=== PATIENT | female | born 1975 | race Caucasian/White ===

== ENCOUNTER 2019-05-21 17:41 | Emergency (ER) | payer BC ==
--- NOTE | 2019-05-21 18:12 | ER Document Report ---
HPI - HPI Patient complains to provider of: right sided neck pain x 1 month Time Seen by Provider: 05/21/19 18:11 Onset: Other - weekd Onset/Duration: Gradual, Persistent, Waxing and waning Severity: Moderate Pain Level: 3 Context: 43-year-old female with the listed past medical history here for several weeks of continued right-sided neck pain that radiates down her right arm. She has already had x-rays that only showed arthritis per patient done at her chiropractor's office yesterday. however i do not have these records for review. She has been on soma without improvement of her symptoms 2 wks ago and has also tried toradol in the clinic along with decadron and states they didn't help at all. Tylenol and ibuprofen are not controlling her symptoms. No spinal surgeries. She states her chiropractor told her she needed to have an MRI as he felt like she may have a slipped disc. She states she tried to get into her primary care but has not been able to yet and they told her to come here for pain control. She denies any actual fall or trauma. She states she just awoke with the pain. No history of this before. Denies IV drug use. No fever. She states she has xxph-eft-nlhikik, and tingling in her right arm which she has had for weeks now. She states this is unchanged. No weakness. No facial droop. No slurred speech. No headache, dizziness, blurred vision, tinnitus, syncope, hx of arythrmias, cp, sob, ripping or tearing sensation, or any other symptoms. She states she has an appointment with her primary care doctor finally in 2 days however she could not take the pain any longer so she came in for pain control. She is allergic to codeine and states it causes anaphylaxis however she states she can take all other narcotics without any issue. She states she has had Vicodin before in the past for dental pain. She recently returned from [place]. she states she had to wait to see her pcp to get the mri done. denies any other complaints at this time. Associated Symptoms: denies: Chest pain, Fever, Leg swelling, Shortness of breath, Weakness Exacerbated by: Movement Relieved by: Remaining still Similar symptoms previously: Yes Recently seen / treated by doctor: Yes - ROS Systems Reviewed and Negative: Yes All other systems reviewed and negative - to include 10 systems, unless mentioned in the hpi - REPRODUCTIVE Reproductive: DENIES: : Past Medical History - General Information source: Patient - Social History Smoking Status: Current Some Day Smoker Frequency of alcohol use: None Drug Abuse: None Lives with: Alone Family History: Reviewed & Not Pertinent Patient has suicidal ideation: No Patient has homicidal ideation: No - Past Medical History Cardiac Medical History: Denies: Hx Atrial Fibrillation, Hx Coronary Artery Disease, Hx DVT, Hx Heart Attack, Hx Peripheral Vascular Disease, Hx Pulmonary Embolism Pulmonary Medical History: Denies: Hx Asthma Neurological Medical History: Denies: Hx Cerebrovascular Accident, Hx Migraine, Hx Seizures Endocrine Medical History: Denies: Hx Diabetes Mellitus Type 1, Hx Diabetes Mellitus Type 2, Hx Hypothyroidism Musculoskeletal Medical History: Reports Hx Arthritis, Reports Hx Muscle Spasm Psychiatric Medical History: Reports: Hx Anxiety, Hx Depression Infectious Medical History: Reports: None Past Surgical History: Denies: Hx Neurologic Surgery, Hx Orthopedic Surgery - Immunizations Immunizations up to date: Yes Vertical Provider Document - CONSTITUTIONAL Agree With Documented VS: Yes Exam Limitations: No Limitations General Appearance: WD/WN Notes: >>>> PHYSICAL_EXAM: GENERAL_APPEARANCE: well_nourished, alert, cooperative, no_acute_distress, mild_obvious_discomfort. pleasant, thin middle aged white female who appears slightly older than stated age, appears uncomfortable but not toxic, smiling, speaking in full sentences, in no sign of resp distress, no one is with her. VITALS: reviewed, see vital signs table. HEAD: no_swelling\tenderness on the head. normocephalic. atraumatic. no daly signs. no raccoons eyes. EYES: PERRL, EOMI, conjunctiva_clear. NOSE: no_nasal_discharge. MOUTH: (-)decreased moisture. THROAT: no_tonsilar_inflammation/exudate/hypertrophy/thrush, no_airway_obstruction. no_lymphadenopathy NECK: supple, no midline neck_tenderness, no step offs or deformities. there is ttp over the right trapezius, rhomboids, and paracervical musculature that reproduces pts pain exactly. spasm noted. no overlying skin changes. (- )thyromegaly. full rom other than slight decreased rom on lateral bending secondary only to pain. full strength. no jvd. no carotid bruit. no meningeal signs. no sign of central cord syndrome. no torticollis. BACK: no_back_tenderness. CHEST_WALL: no_chest_tenderness. no overlying skin changes LUNGS: no_wheezing, ctab (-)accessory muscle use, good air exchange bilateral. HEART: normal_rate, normal_rhythm, ABDOMEN: normal_BS, soft, no_abd_tenderness, (-)guarding, (-)rebound, no distension or peritoneal signs. no cva ttp EXTREMITIES: strength 5/5 in all_extremities, good pulses in all_extremities, no_swelling\tenderness in the extremities other than over right bicipital groove. questionably pos speed and yergasons test. neg drop can test, no_edema. full rom. normal gait. good pulses. brisk cap refill. good hand eating disorder psychologist. NEURO: motor and sensation intact, cranial nerves 2-12 intact, cerebellar fxn intact SKIN: warm, dry, good_color, no_rash. MENTAL_STATUS: speech_clear, oriented_X_3, normal_affect, respon ds_appropriately to questions. Course - Re-evaluation Re-evalutation: 05/21/19 19:10 Pt here for awaiting follow-up with her PCP in a couple days to have an MRI set up as she likely has right cervical radiculopathy along with a right cervical strain. She has palpable spasms on exam that reduce her pain. She did not want anything here for pain. Will discharge her with a few Vicodin and orphenadrine. Gave medication precautions. Ice/heat to the area. Advised gvaw-brw-uziuwrp TENS unit and massage therapy. strict return precautions given. she is otherwise neurononfocal. she hasn't gotten any scripts on the [employer] drug database in the last 2 yrs other than one short script of soma. advised to f/u with pcp/neurosurg in 1-2 days. return for any worsening symptoms. vss. well appearing. satting well on ra. pt understands and agrees to plan. On reexam, pt improved with tx listed. remained stable. nontoxic. well appearing. pain controlled. tolerating po. requesting to go home. neurononfocal. Documentation achieved through voice recording which may lead to some occasional accidental typographical errors. Extensive efforts have been made to proof read documentation to make sure these are the least as possible. - Vital Signs Vital signs: Temp Pulse Resp BP Pulse Ox 98.7 F 73 20 109/66 99 05/21/19 17:48 05/21/19 17:48 05/21/19 17:48 05/21/19 17:48 05/21/19 17:48 05/21/19 19:17 Temp Pulse Resp BP Pulse Ox 05/21/19 17:48 98.7 F 73 20 109/66 99 Discharge - Discharge Clinical Impression: Right cervical radiculopathy, Strain of cervical portion of right trapezius muscle Condition: Good Disposition: HOME, SELF-CARE Instructions: Neck Injury (Cervical Strain) ([facility]) Additional Instructions: Follow-up with PCP/neurosurg in 1 to 2 days. Return for any worsening symptoms. Do not work, drive, operate machinery, or take Tylenol with the Vicodin or orphenadrine. you can get an pixi-vla-czvuumr TENS unit for your symptoms. Massage therapy. Follow-up closely with your PCP as scheduled in a few days for an MRI of your neck as discussed. Ice/heat to the area. Take the medication as prescribed. Prescriptions: Hydrocodone/Acetaminophen [Murray 5-325 mg Tablet] 1 tab PO Q6 PRN #12 tablet PRN Reason: For Pain Orphenadrine Citrate 100 mg PO BID PRN #20 tablet.sa PRN Reason: Muscle Spasms
[2019-05-21 19:47] VITALS: BP 110/62
== END 2019-05-21 19:41 | disposition home or self-care (01) ==
LOC: ER 17:41
DX: S16.1XXA Strain of muscle, fascia and tendon at neck level, initial encounter (principal); M54.12 Radiculopathy, cervical region; M79.601 Pain in right arm; X58.XXXA Exposure to other specified factors, initial encounter; F17.200 Nicotine dependence, unspecified, uncomplicated; Z88.6 Allergy status to analgesic agent
CPT/HCPCS: 99283

== ENCOUNTER 2019-06-10 13:11 | Emergency (ER) | payer OTHER, BC ==
[2019-06-10 13:29] VITALS: BP 122/73
[2019-06-10] MEDS ORDERED: IBUPROFEN 600 MG TABLET PO ONE (14:05)
--- NOTE | 2019-06-10 14:05 | ER Document Report ---
ED Medical Screen (RME) - General Chief Complaint: Fall Injury Stated Complaint: FALL/BACK PAIN Time Seen by Provider: 06/10/19 14:01 Primary Care Provider: NERY GODWIN MD [Primary Care Provider] - Follow up as needed Mode of Arrival: Ambulatory Information source: Patient Notes: 43-year-old female presented to ED for fall while at work. She states she landed on her left side. She states that her center back neck and left shoulder are hurting from the fall. She states she is scheduled for an MRI on Friday for a previous herniated disc in the neck. Patient is having pain to the left shoulder and the scapular area on the left. She is alert oriented respirations regular nonlabored speaking in full sentences. I have greeted and performed a rapid initial assessment of this patient. A comprehensive ED assessment and evaluation of the patient, analysis of test results and completion of medical decision making process will be conducted by an additional ED providers. TRAVEL OUTSIDE OF THE [place] IN LAST 30 DAYS: No - Related Data Allergies/Adverse Reactions: codeine Allergy (Verified 06/10/19 13:48) Sulfa (Sulfonamide Antibiotics) Allergy (Verified 06/10/19 13:48) Tetanus Vaccines and Toxoid Allergy (Verified 06/10/19 13:48) Past Medical History - Social History Chew tobacco use (# tins/day): No Frequency of alcohol use: None Drug Abuse: None - Past Medical History Cardiac Medical History: Denies: Hx Atrial Fibrillation, Hx Coronary Artery Disease, Hx DVT, Hx Heart Attack, Hx Peripheral Vascular Disease, Hx Pulmonary Embolism Pulmonary Medical History: Denies: Hx Asthma Neurological Medical History: Denies: Hx Cerebrovascular Accident, Hx Migraine, Hx Seizures Endocrine Medical History: Denies: Hx Diabetes Mellitus Type 1, Hx Diabetes Mellitus Type 2, Hx Hypothyroidism Musculoskeltal Medical History: Reports Hx Arthritis, Reports Hx Muscle Spasm Psychiatric Medical History: Reports: Hx Anxiety, Hx Depression Past Surgical History: Reports: Hx Section, Hx Hysterectomy. Denies: Hx Neurologic Surgery, Hx Orthopedic Surgery - Immunizations Immunizations up to date: Yes Physical Exam - Vital signs Vitals: Temp Pulse Resp BP Pulse Ox 98.2 F 70 18 122/73 100 06/10/19 13:27 06/10/19 13:27 06/10/19 13:27 06/10/19 13:27 06/10/19 13:27 Course - Vital Signs Vital signs: Temp Pulse Resp BP Pulse Ox 98.2 F 70 18 122/73 100 06/10/19 13:27 06/10/19 13:27 06/10/19 13:27 06/10/19 13:27 06/10/19 13:27 Doctor's Discharge - Discharge Referrals: NERY GODWIN MD [Primary Care Provider] - Follow up as needed
--- NOTE | 2019-06-10 14:33 | RADIOLOGY REPORT (SQ) ---
EXAM DESCRIPTION: CT CERVICAL SPINE WITHOUT COMPLETED DATE/TIME: 06/10/2019 2:20 pm REASON FOR STUDY: Fall pain in the neck and upper back COMPARISON: None. TECHNIQUE: Axial images acquired through the cervical spine without intravenous contrast. Images re viewed with lung, soft tissue and bone windows. Reconstructed coronal and sagittal MPR images review ed. Images stored on PACS. All CT scanners at this facility use dose modulation, iterative reconstruction, and/or weight based d osing when appropriate to reduce radiation dose to as low as reasonably achievable (ALARA). [facility]: Dose Right [facility]: CareDose [facility]: Dose Right [facility]: Teradose 4D [facility]: MarkITx RADIATION DOSE: CT Rad equipment meets quality standard of care and radiation dose reduction techniq ues were employed. CTDIvol: 10.0 mGy. DLP: 199 mGy-cm. mGy. LIMITATIONS: None. FINDINGS: ALIGNMENT: Anatomic. There is straightening of the cervical curvature. MINERALIZATION: Normal. VERTEBRAL BODIES: No fractures or dislocation. DISCS: No significant disc disease. FACETS, LATERAL MASSES, POSTERIOR ELEMENTS: No fractures. No dislocation. No acute findings. HARDWARE: None in the spine. VISUALIZED RIBS: No fractures. LUNG APICES AND SOFT TISSUES: No significant or acute findings. OTHER: No other significant finding. IMPRESSION: STRAIGHTENING OF THE CERVICAL CURVATURE WHICH MAY BE DUE TO POSITIONING OR MUSCLE SPASM. NO ACUTE OR SIGNIFICANT FINDINGS IN THE CERVICAL SPINE. TECHNICAL DOCUMENTATION: JOB ID: [id number] Quality ID # [id number]: Final reports with documentation of one or more dose reduction techniques (e.g., Au tomated exposure control, adjustment of the mA and/or kV according to patient size, use of iterative reconstruction technique) 2010 [employer]- All Rights Reserved Reading location - IP/workstation name: [facility] [employer]-[email or web address]
--- NOTE | 2019-06-10 14:43 | RADIOLOGY REPORT (SQ) ---
EXAM DESCRIPTION: SCAPULA LEFT COMPLETED DATE/TIME: 06/10/2019 2:31 pm REASON FOR STUDY: Pain in the neck and upper back shoulder and scapu COMPARISON: None. NUMBER OF VIEWS: Three views. TECHNIQUE: Internal rotation, external rotation, and Y view images acquired of the left scapula. LIMITATIONS: None. FINDINGS: MINERALIZATION: Normal. BONES: No acute fracture . No worrisome bone lesions. No significant osteophytes. VISUALIZED RIBS, SPINE, AND LUNG: No other significant finding. OTHER: No other significant finding. IMPRESSION: 1. No acute osseous findings. TECHNICAL DOCUMENTATION: JOB ID: [id number] [facility]- All Rights Reserved Reading location - IP/workstation name: [email or web address]
--- NOTE | 2019-06-10 14:44 | RADIOLOGY REPORT (SQ) ---
EXAM DESCRIPTION: SHOULDER LEFT 2 OR MORE VIEWS COMPLETED DATE/TIME: 06/10/2019 2:31 pm REASON FOR STUDY: Pain in the neck and upper back shoulder and scapu COMPARISON: None. NUMBER OF VIEWS: Three views. TECHNIQUE: Internal rotation, external rotation, and Y view images acquired of the left shoulder. LIMITATIONS: None. FINDINGS: MINERALIZATION: Normal. BONES: No acute fracture. No worrisome bone lesions. JOINTS: No dislocation. VISUALIZED LUNGS AND RIBS: No pneumothorax. No rib fracture. SOFT TISSUES: No radiopaque foreign body. OTHER: No other significant finding. IMPRESSION: 1. NEGATIVE STUDY OF THE LEFT SHOULDER. TECHNICAL DOCUMENTATION: JOB ID: [id number] [employer]- All Rights Reserved Reading location - IP/workstation name: [email or web address]
[2019-06-10] MEDS ORDERED: OXYCODONE-ACETAMINOPHEN 5-325 MG TABLET PO ONE (15:52)
--- NOTE | 2019-06-10 15:52 | ER Document Report ---
HPI - HPI Time Seen by Provider: 06/10/19 14:01 Pain Level: 4 Notes: 43-year-old female presented to ED for fall while at work. She states she landed on her left side. She states that her center back neck and left shoulder are hurting from the fall. She states she is scheduled for an MRI on Friday for a previous herniated disc in the neck. Patient is having pain to the left shoulder and the scapular area on the left. She is alert oriented respirations regular nonlabored speaking in full sentences. - REPRODUCTIVE LMP: KAREN Reproductive: DENIES: : Past Medical History - General Information source: Patient - Social History Smoking Status: Current Every Day Smoker Chew tobacco use (# tins/day): No Frequency of alcohol use: None Drug Abuse: None Family History: Reviewed & Not Pertinent Patient has suicidal ideation: No Patient has homicidal ideation: No - Past Medical History Cardiac Medical History: Denies: Hx Atrial Fibrillation, Hx Coronary Artery Disease, Hx DVT, Hx Heart Attack, Hx Peripheral Vascular Disease, Hx Pulmonary Embolism Pulmonary Medical History: Denies: Hx Asthma Neurological Medical History: Denies: Hx Cerebrovascular Accident, Hx Migraine, Hx Seizures Endocrine Medical History: Denies: Hx Diabetes Mellitus Type 1, Hx Diabetes Mellitus Type 2, Hx Hypothyroidism Musculoskeletal Medical History: Reports Hx Arthritis, Reports Hx Muscle Spasm Psychiatric Medical History: Reports: Hx Anxiety, Hx Depression Past Surgical History: Reports: Hx Section, Hx Hysterectomy. Denies: Hx Neurologic Surgery, Hx Orthopedic Surgery - Immunizations Immunizations up to date: Yes Vertical Provider Document - CONSTITUTIONAL Notes: PHYSICAL EXAMINATION: GENERAL: Well-appearing, well-nourished and in no acute distress. HEAD: Atraumatic, normocephalic. EYES: Pupils equal round extraocular movements intact, conjunctiva are normal. ENT: Nares patent NECK: Normal range of motion LUNGS: No respiratory distress Musculoskeletal: Normal range of motion to right shoulder, tenderness to palpation along right paraspinous areas in the cervical region, no vertebral tenderness, step-off or deformity. Strong radial pulse, normal motor and sensation distal to area of concern. NEUROLOGICAL: Normal speech, normal gait. PSYCH: Normal mood, normal affect. SKIN: Warm, Dry, normal turgor, no rashes or lesions noted. - INFECTION CONTROL TRAVEL OUTSIDE OF THE [place] IN LAST 30 DAYS: No Course - Re-evaluation Re-evalutation: Cervical Spine CT 06/10/19 14:05 IMPRESSION: STRAIGHTENING OF THE CERVICAL CURVATURE WHICH MAY BE DUE TO POSITIONING OR MUSCLE SPASM. NO ACUTE OR SIGNIFICANT FINDINGS IN THE CERVICAL SPINE. Scapula X-Ray 06/10/19 14:06 IMPRESSION: 1. No acute osseous findings. Shoulder X-Ray 06/10/19 14:06 IMPRESSION: 1. NEGATIVE STUDY OF THE LEFT SHOULDER. - Vital Signs Vital signs: Temp Pulse Resp BP Pulse Ox 98.2 F 70 18 122/73 100 06/10/19 13:27 06/10/19 13:27 06/10/19 13:27 06/10/19 13:27 06/10/19 13:27 Discharge - Discharge Clinical Impression: Cervical strain Qualifiers: Encounter type: initial encounter Qualified Code(s): S16.1XXA - Strain of muscle, fascia and tendon at neck level, initial encounter Fall with injury Qualifiers: Encounter type: initial encounter Qualified Code(s): W19.XXXA - Unspecified fall, initial encounter Right shoulder pain Qualifiers: Chronicity: acute Qualified Code(s): M25.511 - Pain in right shoulder Condition: Stable Disposition: HOME, SELF-CARE Additional Instructions: Contusion Your injury has resulted in a contusion -- a crushing of the deep tissues. No injury to important structures was detected during the physician's exam. Contusions vary in the amount of pain they cause, and in the length of time required for healing. Typically, the area will become bruised, and will remain painful to touch for two or three weeks. However, most patients are back to working and playing within a few days. After the initial period of rest and cold-packs, your symptoms (together with the doctor's recommendations) will determine how rapidly you can get back to full activity. Usually this means "do what feels okay, but don't do things that hurt." If re-examination was recommended, it's important to follow up as instructed. Call the doctor or return any time if pain increases, if swelling becomes severe, if you develop numbness or weakness in an injured extremity, or if any other alarming symptoms occur. Muscle Strain You have strained a muscle -- torn the fibers within the muscle. This often occurs with strenuous exertion, or during an injury that suddenly stretches the muscle. The seriousness of a strain varies. Some strains heal within days, others cause problems for months. X-rays cannot show a muscle strain. X-rays are taken only if symptoms suggest that a fracture could be present. The usual treatment of a muscle strain is rest and ice packs. Sometimes, a sling, splint, or crutches may be necessary to rest the muscle. The muscle can be used again once pain subsides. Severe strains require a special exercise and stretching program to prevent permanent stiffness and disability. Your doctor will advise you if this will be necessary. Call the doctor immediately if pain or swelling becomes severe, or if numbness or discoloration develop. Muscle Relaxers Muscle relaxing medications are usually prescribed for acute muscle spasm or injury to the neck and back. They are often combined with antiinflammatory pain medication for increased relief. You may stop the muscle relaxer when the pain and stiffness have improved. Start the medication again if spasms recur. Muscle relaxers may cause drowsiness, especially with the first dose. Do not operate machinery or drive while under the effects of the medication. Most muscle relaxers last up to 24 hours. Do not combine the medication with alcohol. Oral Narcotic Medication You have been given a prescription for pain control. This medication is a narcotic. It's best taken with food, as nausea can result if taken on an empty stomach. Don't operate machinery or drive within six hours of taking this medication. Do not combine this medicine with alcohol, or with any medication which can cause sedation (such as cold tablets or sleeping pills) unless you get permission from the physician. Narcotics tend to cause constipation. If possible, drink plenty of fluids and eat a diet high in fiber and fruits. Prescriptions: Hydrocodone Bit/Acetaminophen [Hydrocodon-Acetaminophen 5-325] 1 each PO Q4H #12 tablet Methocarbamol [Robaxin 750 mg Tablet] 750 mg PO Q4 #30 tablet Forms: Return to Work Referrals: NERY GODWIN MD [Primary Care Provider] - Follow up as needed
[2019-06-10] MEDS ORDERED: METHOCARBAMOL 750 MG TABLET PO ONE (15:53)
== END 2019-06-10 16:03 | disposition home or self-care (01) ==
LOC: ER 13:11
DX: S16.1XXA Strain of muscle, fascia and tendon at neck level, initial encounter (principal); M25.511 Pain in right shoulder; W19.XXXA Unspecified fall, initial encounter; Y99.0 Civilian activity done for income or pay; F17.200 Nicotine dependence, unspecified, uncomplicated; Z90.710 Acquired absence of both cervix and uterus
CPT/HCPCS: 99284; 73010; 73030; 72125; J3490

== ENCOUNTER → 2019-11-16 | Outpatient (CLI) | payer BC ==
[2019-11-16 11:39] LABS: A TYPE INFLUENZA AG NEGATIVE (NEGATIVE); B INFLUENZA AG NEGATIVE (NEGATIVE)
== END ==
LOC: RDC 10:26
PROVIDERS: ATTEND Registered Nurse
DX: Z20.828 Contact with and (suspected) exposure to other viral communicable diseases (principal)
CPT/HCPCS: 87070; 87635; 87804; 87880